=== PATIENT | male | born 1945 | race Caucasian/White ===

== ENCOUNTER 2022-09-08 15:43 | Inpatient (IN) | payer MEDICARE ==
[~2022-09-08] VITALS: Ht 190.5 cm; Wt 86.8 kg
[2022-09-08] MEDS ORDERED: LEVO50TA8 PO (16:04)
[2022-09-08] MEDS ORDERED: LOSA100T31 PO (16:04)
[2022-09-08] MEDS ORDERED: HYDR12.55 PO (16:04)
[2022-09-08] MEDS ORDERED: TDAP DIPH,PERTUSS,TET VAC/PF 0.5 ML DISP.SYRIN IM ONE ×2 (16:15→16:52)
[2022-09-08] MEDS ORDERED: NEOMY/BACITRA/POLYMYXIN B OINT UD PACKET TP ONE ×2 (16:15→16:52)
[2022-09-08] MEDS ORDERED: IV NORMAL SALINE 1000 ML BAG IV ONE ×2 (16:15→18:15)
[2022-09-08 16:34] LABS: HEMATOCRIT 33.6 % (36.7-47.1); MEAN CORPUSCULAR HEMOGLOBIN 37.7 uug (23.8-33.4); MEAN CORPUSCULAR VOLUME 107.9 fL (73.0-96.2); PLATELET COUNT (AUTO) 177 K/uL (152-348)
[2022-09-08 16:42] LABS: CARBON DIOXIDE 25 mmol/L (21-32); CHLORIDE 101 mmol/L (98-107); CREATININE 1.9 mg/dL (0.6-1.3); GLUCOSE 122 mg/dL (74-106); POTASSIUM 4.9 mmol/L (3.5-5.1); UREA NITROGEN, BLOOD 19 mg/dL (7-18)
[2022-09-08] MEDS ORDERED: VANCOMYCIN IV 1,000 MG in IV DEXTROSE 5% 250 ML IV ONE (18:15)
[2022-09-08] MEDS ORDERED: CEFEPIME HCL 1 G in IV DEXTROSE 5% 50 ML IV ONE (18:15)
[2022-09-08] MEDS ORDERED: IOHEXOL 350 100 ML INFUS..BTL ONE (18:16)
[2022-09-08] MEDS ORDERED: IV NORMAL SALINE 250 ML IV ONE (18:16)
[2022-09-08] MEDS ORDERED: SWABABLE VALVE TRANSFER SET EA MC ONE (18:16)
--- NOTE | 2022-09-08 18:30 | NUR ---
Pt to CT via SEAN garcia noted at this time.
[2022-09-08] MEDS ORDERED: CEFEPIME HCL 1 G VIAL ONE (18:52)
[2022-09-08] MEDS ORDERED: VANCOMYCIN IV 200 ML ONE (18:52)
[2022-09-08] MEDS ORDERED: REMEDY ESSENTIAL ZINC PASTE 113 GM TP PRN (19:45)
[2022-09-08] MEDS ORDERED: MAGNESIUM HYDROXIDE 30 ML LIQUID UDC PO PRN (19:45)
[2022-09-08] MEDS ORDERED: ACETAMINOPHEN 325 MG TABLET PO PRN (19:45)
[2022-09-08] MEDS ORDERED: ONDANSETRON 4 MG/2 ML VIAL IV PRN (19:45)
[2022-09-08 19:53] LABS: BILIRUBIN,DIRECT 0.5 mg/dL (0.0-0.2); BILIRUBIN,TOTAL 2.1 mg/dL (0.2-1.0)
[2022-09-08] MEDS ORDERED: HEPARIN SODIUM,PORCINE 5,000 UNITS/ML VIAL SQ ONE (21:00)
--- NOTE | 2022-09-08 21:58 | NUR ---
Called thrid floor to give report. Nurse said they would call back.
[2022-09-08] MEDS ORDERED: CEFEPIME HCL 1 G in IV DEXTROSE 5% 50 ML IV SCH (22:00)
--- NOTE | 2022-09-08 22:11 | NUR ---
Called thrla floor. Report given to Marilin CAVANAUGH.
--- NOTE | 2022-09-08 23:00 | NUR ---
PATIENT TRANSFER FROM ER VIA GURNEY TO ROOM 322, COMPLETE ASSESSMENT DONE.
--- NOTE | 2022-09-08 23:06 | NUR ---
Pt. admitted to TELE room 322, under care of Soledad TIME CLOCK MECHANIC. Belongs List completed. RN Jennifer aware of patient's arrival.
[2022-09-09] VITALS: BP 135/83
[2022-09-09] MEDS: IV NS 1000 ML 1,000 ML IV PRN ×2 (01:52→18:37)
[2022-09-09] MEDS ORDERED: HEPARIN SODIUM,PORCINE 5,000 UNITS/ML VIAL SQ ONE (02:45)
[2022-09-09 04:00] VITALS: BP 122/64
[2022-09-09 06:56] LABS: MEAN CORPUSCULAR HEMOGLOBIN 38.7 uug (23.8-33.4); MEAN CORPUSCULAR VOLUME 106.8 fL (73.0-96.2); PLATELET COUNT (AUTO) 110 K/uL (152-348)
--- NOTE | 2022-09-09 07:18 | NUR ---
[facility].
[2022-09-09 07:20] LABS: CARBON DIOXIDE 25 mmol/L (21-32); CHLORIDE 105 mmol/L (98-107); CHOLESTEROL 119 mg/dL (<200); CREATININE 1.9 mg/dL (0.6-1.3); GLUCOSE 99 mg/dL (74-106); HDL CHOLESTEROL 85 mg/dL (40-60); MAGNESIUM 1.5 mg/dL (1.8-2.4); PHOSPHOROUS 3.8 mg/dL (2.5-4.9); POTASSIUM 4.6 mmol/L (3.5-5.1); TRIGLYCERIDES 33 MG/DL (30-150); UREA NITROGEN, BLOOD 18 mg/dL (7-18)
[2022-09-09] MEDS: CEFEPIME HCL 2 G in IV DEXTROSE 5% 100 ML IV SCH ×2 (08:25→20:31)
[2022-09-09] MEDS ORDERED: MAGNESIUM SULFATE/D5W 100 ML IV SCH (09:15)
--- NOTE | 2022-09-09 09:59 | NUR ---
MAGNESIUM LEVEL IS 1.5 WITH NEW REPLACEMENT ORDER AND NOTED.
[2022-09-09 10:51] VITALS: BP 127/59
[2022-09-09] MEDS ORDERED: VANCOMYCIN IV 1,000 MG in IV DEXTROSE 5% 250 ML IV ONE (12:00)
--- NOTE | 2022-09-09 12:10 | NUR ---
WOUND CARE CONSULT: PT PRESENTS WITH RT LOWER LEG WOUNDS, PRESENT ON ADMISSION. DR VINSON CALLED FOR DPM CONSULT. PT STATES THAT HE FELL THROUGH FLOORBOARDS IN BATHROOM AT HOME WHICH WAS UNDER CONSTRUCTION. WOUNDS ARE COVERED WITH TELFA/BORDERGAUZE DRESSING AT THIS TIME WITH MINIMAL SEROSANGUINOUS DRAINAGE, NO ODOR. IN AGREEMENT WITH PLAN OF CARE.
--- NOTE | 2022-09-09 13:05 | NUR ---
PATIENT SEEN AND EXAMINED BY DR NIC MENENDEZ WITH NEW ORDERS AND NOTED.
--- NOTE | 2022-09-09 13:44 | NUR ---
SW consult was requested for a patient on medsurg to assess current living situation. Patient is a 77-year-old male admitted to the hospital for sepsis. Patient is alert and oriented X4. Patient presents with anxious mood and congruent affect. Patient states that his primary contact is Talha Hollis ([phone]) who lives with him at [address] [place] [address] in a one-story house. 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 Patient denies a history of substance abuse. Patient denies a history of substance abuse. Patient denies suicidal or homicidal ideation. Patient states his plan for discharge is to take an uber home to [address] [place] [address]. SW informed comp field case manager, Antoni, and Dnp, Suni Rowe.
[2022-09-09 15:35] VITALS: BP 149/82
--- NOTE | 2022-09-09 15:50 | NUR ---
DR MICHELLE HERE AND SEEN PATIENT AND DID BEDSIDE SERIAL DEBRIDEMENT OF THE RIGHT LEG WOUND AND PATIENT TOLERATED WELL.
--- NOTE | 2022-09-09 18:05 | NUR ---
IV SITE PULLED OUT PATIENT STATED WAS GOING TO THE BATHROOM AND NOTED THAT ITS OUT ATTEMPTED 3 TIMES TO INSERT TO NO AVAIL VEIN ROLLS AND COLLAPSES EASILY MD AWARE CALLED THE NURSING OFFICE TO SEE IF THE MID LINE NURSE WAS AVAILABLE TO INSERT A MIDLINE WILL CHECK AND LET ME KNOW.
--- NOTE | 2022-09-09 18:37 | NUR ---
FINALLY ABLE TO INSERT A LINE TO HIS RIGHT UPPER ARM GAUGE 20 AND IVPB IN PROGRESS ORDERED.
--- NOTE | 2022-09-09 19:00 | NUR ---
RELIEVED REPORT FROM DAYSHIFT NURSE.
[2022-09-09 20:00] VITALS: BP 143/75
[2022-09-09] MEDS: HEPARIN SODIUM,PORCINE 5,000 UNITS/ML VIAL SQ SCH (20:31)
[2022-09-10 04:00] VITALS: BP 150/89
[2022-09-10 06:56] LABS: CARBON DIOXIDE 27 mmol/L (21-32); CHLORIDE 102 mmol/L (98-107); CREATININE 1.6 mg/dL (0.6-1.3); GLUCOSE 92 mg/dL (74-106); MAGNESIUM 1.5 mg/dL (1.8-2.4); PHOSPHOROUS 3.3 mg/dL (2.5-4.9); POTASSIUM 4.4 mmol/L (3.5-5.1); UREA NITROGEN, BLOOD 13 mg/dL (7-18)
[2022-09-10 09:32] LABS: HEMATOCRIT 23.7 % (36.7-47.1); MEAN CORPUSCULAR HEMOGLOBIN 39.2 uug (23.8-33.4); MEAN CORPUSCULAR VOLUME 104.5 fL (73.0-96.2); PLATELET COUNT (AUTO) 113 K/uL (152-348)
[2022-09-10] MEDS: CEFEPIME HCL 2 G in IV DEXTROSE 5% 100 ML IV SCH (09:52)
[2022-09-10] MEDS: HEPARIN SODIUM,PORCINE 5,000 UNITS/ML VIAL SQ SCH (10:08)
[2022-09-10] MEDS ORDERED: MAGNESIUM SULFATE/D5W 100 ML IV SCH (11:00)
[2022-09-10] MEDS ORDERED: CIPR-262 PO (11:38)
[2022-09-10] MEDS ORDERED: VANCOMYCIN IV 1,250 MG in IV DEXTROSE 5% 250 ML IV SCH (14:00)
[2022-09-10 16:13] VITALS: BP 150/70
--- NOTE | 2022-09-10 18:30 | NUR ---
PT is in no acute discharge. Pt denies any c/o pain. No sob noted. Discharge instructions given. Pt verbalized understanding. Right leg pix taken and updated.
== END 2022-09-10 18:30 | disposition home health service (06) | DRG 853 ==
LOC: ER 15:43 → TELE3 18:20 → MEDSURG3 09-09 18:05
PROVIDERS: ADMIT Nurse Practitioner Acute Care; ATTEND Nurse Practitioner Acute Care
PROC: 0JBN0ZZ Excision of Right Lower Leg Subcutaneous Tissue and Fascia, Open Approach (ICD-10-PCS; principal; 2022-09-09)
DX: A41.9 Sepsis, unspecified organism (principal); N17.0 Acute kidney failure with tubular necrosis; L03.115 Cellulitis of right lower limb; R65.20 Severe sepsis without septic shock; D53.9 Nutritional anemia, unspecified; S81.811A Laceration without foreign body, right lower leg, initial encounter; W22.8XXA Striking against or struck by other objects, initial encounter; Y92.002 Bathroom of unspecified non-institutional (private) residence as the place of occurrence of the external cause; D53.1 Other megaloblastic anemias, not elsewhere classified; E03.9 Hypothyroidism, unspecified; M79.661 Pain in right lower leg; E83.119 Hemochromatosis, unspecified; Z20.822 Contact with and (suspected) exposure to COVID-19
CPT/HCPCS: 36415; 71045; 71275; 73590; 76770; 83605; 83735; 84100; 84443; 84484; 85025; 87040; 90715; 93005; A4663; G0378; J0692; J1644; J3370; J3475; J7040; J7050; Q9967